=== PATIENT | female | born 1975 | race African-American/Black ===

== ENCOUNTER 2021-09-05 08:40 | Outpatient (CLI) | payer BC | END 2021-09-05 08:41 | disposition home or self-care (01) | LOC: CSHRAD 08:40 | PROVIDERS: ATTEND Family Medicine | DX: M25.512 Pain in left shoulder (principal); M54.2 Cervicalgia; M47.812 Spondylosis without myelopathy or radiculopathy, cervical region | CPT/HCPCS: 72040 ==

== ENCOUNTER 2022-02-18 15:02 | Outpatient (CLI) | payer BC | END 2022-02-18 15:03 | disposition home or self-care (01) | LOC: CSHRAD 15:02 | PROVIDERS: ATTEND Family Medicine | DX: S89.92XA Unspecified injury of left lower leg, initial encounter (principal) ==

== ENCOUNTER 2025-02-16 15:44 | Outpatient (CLI) | payer OTHER | END 2025-02-16 15:45 | disposition home or self-care (01) | LOC: CSHRAD 15:44 | PROVIDERS: ATTEND Family Medicine | DX: M99.01 Segmental and somatic dysfunction of cervical region (principal); M25.511 Pain in right shoulder; M47.812 Spondylosis without myelopathy or radiculopathy, cervical region; M50.30 Other cervical disc degeneration, unspecified cervical region; M48.03 Spinal stenosis, cervicothoracic region; M48.02 Spinal stenosis, cervical region | CPT/HCPCS: 72050 ==